=== PATIENT | female | born 1985 | race Caucasian/White ===

== ENCOUNTER 2019-03-02 18:40 | Outpatient (CLI) | payer OTHER ==
[~2019-03-02] VITALS: Ht 166.4 cm; Wt 74.3 kg
[2019-03-02 19:05] VITALS: Ht 166.4 cm; Wt 74.3 kg
[2019-03-02 19:06] VITALS: BP 116/70; PULSE 83; RESP 18
[2019-03-02] MEDS ORDERED: PNV11TAB PO (19:08)
[2019-03-02] MEDS ORDERED: LACTATED RINGER'S 1,000 ML IV SCH (21:00)
[2019-03-02] MEDS ORDERED: LACTATED RINGER'S 1,000 ML IV ONE (21:00)
--- NOTE | 2019-03-03 00:44 | TRIAGE ---
OB Triage Datetime Report Generated by CPN: 03/03/2019 00:44 Datetime: 03/02/2019 19:40 Stage of : OB Triage Datetime: 03/02/2019 19:35 Stage of : OB Triage Labor Evaluation Frequency: 0 Monitor Mode: External Pattern: Normal: <= 5 Contractions in 10 Minutes Resting Tone Rosine: Relaxed Heart Rate FHR Baseline Rate: 150 Monitor Mode: External US FHR Baseline Changes: No Baseline Change Variability: Moderate 6-25 bpm Accelerations: 15X15 Decelerations: None Category: Category I Pain Assessment Pain Scale: 2 Pain Presence: Constant Pain Type: Sharp Pain Location: Abdomen Pain Assessment Comments: LLQ pain Datetime: 03/02/2019 19:19 Vaginal Exam Membrane Status: Intact Datetime: 03/02/2019 18:59 Maternal Assessment Level of Consciousness: Fully Conscious DTR's/Clonus: DTRs 2+; No Clonus Headache: Denies Blurred Vision: No Respiratory Effort: Unlabored; Regular Rhythm; Equal Expansion Breath Sounds, Left: Clear and Equal Breath Sounds, Right: Clear and Equal Nausea/Vomiting: Hx of Nausea/Vomiting RUQ Epigastric Pain: Denies Facial Edema: None Temperature Route: Axillary Fall Risk Assessment History of Falling: (0) No Secondary Diagnosis: (0) No Ambulatory Aid: (0) Bedrest/Nurse Assist IV Therapy: (0) No Gait: (0) Normal/Bedrest/Immobile Mental Status: (0) Oriented to Own Ability Fall Score: 0 Fall Risk Score Definition: No Risk: No action required Labor Evaluation Frequency: 0 Monitor Mode: External Pattern: Normal: <= 5 Contractions in 10 Minutes Resting Tone Rosine: Relaxed Heart Rate FHR Baseline Rate: 155 Monitor Mode: External US Variability: Moderate 6-25 bpm Accelerations: None Decelerations: None Pain Assessment Pain Scale: 0 Pain Presence: None/Denies Pain Type: N/A Pain Goal: 3 Pain Relief Measures: Comfort Measures Datetime: 03/02/2019 18:58 EGA: 26.2 Datetime: 03/02/2019 18:56 Time of Arrival: 03/02/2019 18:30 Arrived By: Ambulatory Arrived From: Home Chief Complaint: C/O NAUSEA, VOMITING AND DIARRHEA X 3 DAYS. ABDOMINAL CRAMPS, DENIES BLEEDING OR LEAKING Movement: Present Contractions: Denies/Absent Rupture of Membranes: Denies Vaginal Bleeding: None Vaginal Discharge: Denies Recent Sexual Intercouse: Denies Abdominal Trauma: Not Applicable Patient Complaints: Cramping Time Provider Notified: 03/02/2019 19:40 Provider Notified: Dr Christy Initial Plan: MONITOR, UA,CBC,CMP,CVL,BPP,EFW
--- NOTE | 2019-03-03 08:46 | PN ---
Triage Information Date/Time 03/03/2019 Reason for visit: Nausea and vomiting Weeks of Gestation 26 weeks and 2 days /Para 1 para 0 Diabetes: none Hypertention: none Additional information 33-year-old G1, P0 with IUP at 26 weeks and 2 days presented with complaint of nausea and vomiting and left-sided lower abdominal pain. Reports diarrhea as well. Denies any sick contact. Denies any fever or chills. Patient reports nausea 15 minutes after eating with diarrhea. Reports had these symptoms in the past as well. She denies any leaking of fluid, vaginal bleeding or decreased movement Objective Vital Signs Date Temp Pulse Resp B/P (MAP) Pulse Ox O2 O2 Flow FiO2 Time Delivery Rate 03/02/19 97.8 83 18 116/70 19:06 (85) Intake and Output 03/02/19 03/02/19 03/03/19 1515:00 23:00 07:00 IntakeIntake Total 1000 ml BalanceBalance 1000 ml Heart Rate: 130's Contractions: < 5 Minutes Apart Exam General appearance: Alert and oriented x4 does not appear to be in any acute distress Abdomen: Soft, gravid, fundal height consider gestational age No rebound tenderness, no guarding, no rigidity Ultrasound: Cervical length: 3.8 cm, estimated weight 51 percentile VS - Last 72 Hours, by Label Date Temp Pulse Resp B/P (MAP) Pulse Ox O2 O2 Flow FiO2 Time Delivery Rate 03/02/19 97.8 83 18 116/70 19:06 (85) Laboratory Tests Test 03/02/19 19:00 03/02/19 20:14 Urine Color ANNELIESE Urine Clarity CLOUDY A Urine pH 5.0 Urine Specific [place] 1.024 Urine Ketones NEGATIVE Urine Nitrite NEGATIVE Urine Bilirubin NEGATIVE Urine Urobilinogen 1+ H Urine Leukocyte Esterase TRACE A Urine Microscopic RBC 1 Urine Microscopic WBC 4 Urine Squamous Epithelial Cells MANY A Urine Bacteria FEW A Urine Mucus MODERATE Urine Hemoglobin NEGATIVE Urine Glucose 1+ H Urine Total Protein NEGATIVE White Blood Count 10.4 Red Blood Count 3.98 L Hemoglobin 12.3 Hematocrit 36.0 L Mean Corpuscular Volume 90.5 Mean Corpuscular Hemoglobin 30.9 Mean Corpuscular Hemoglobin Concent 34.2 Red Cell Distribution Width 12.2 Platelet Count 253 Mean Platelet Volume 9.9 Immature Granulocytes % 1.000 H Neutrophils % 73.1 Lymphocytes % 17.7 Monocytes % 6.7 Eosinophils % 1.1 Basophils % 0.4 Nucleated Red Blood Cells % 0.0 Immature Granulocytes # 0.100 H Neutrophils # 7.6 H Lymphocytes # 1.8 Monocytes # 0.7 Eosinophils # 0.1 Basophils # 0.0 Nucleated Red Blood Cells # 0.0 Sodium Level 135 Potassium Level 3.7 Chloride Level 107 Carbon Dioxide Level 21 Anion Gap 7 Blood Urea Nitrogen 6 L Creatinine 0.34 L Est Glomerular Filtrat Rate mL/min > 60 Glucose Level 79 Calcium Level 9.5 Total Bilirubin 0.2 Direct Bilirubin 0.00 Indirect Bilirubin 0.2 Aspartate Amino Transf (AST/SGOT) 22 Alanine Aminotransferase (ALT/SGPT) 22 Alkaline Phosphatase 75 Total Protein 6.5 Albumin 3.6 Globulin 2.90 Albumin/Globulin Ratio 1.24 Results/Medications Result Diagram: 03/02/19201303/02/192013 Results 24 hrs Laboratory Tests Test 03/02/19 19:00 03/02/19 20:14 Urine Color ANNELIESE Urine Clarity CLOUDY A Urine pH 5.0 Urine Specific [place] 1.024 Urine Ketones NEGATIVE Urine Nitrite NEGATIVE Urine Bilirubin NEGATIVE Urine Urobilinogen 1+ H Urine Leukocyte Esterase TRACE A Urine Microscopic RBC 1 Urine Microscopic WBC 4 Urine Squamous Epithelial Cells MANY A Urine Bacteria FEW A Urine Mucus MODERATE Urine Hemoglobin NEGATIVE Urine Glucose 1+ H Urine Total Protein NEGATIVE White Blood Count 10.4 Red Blood Count 3.98 L Hemoglobin 12.3 Hematocrit 36.0 L Mean Corpuscular Volume 90.5 Mean Corpuscular Hemoglobin 30.9 Mean Corpuscular Hemoglobin Concent 34.2 Red Cell Distribution Width 12.2 Platelet Count 253 Mean Platelet Volume 9.9 Immature Granulocytes % 1.000 H Neutrophils % 73.1 Lymphocytes % 17.7 Monocytes % 6.7 Eosinophils % 1.1 Basophils % 0.4 Nucleated Red Blood Cells % 0.0 Immature Granulocytes # 0.100 H Neutrophils # 7.6 H Lymphocytes # 1.8 Monocytes # 0.7 Eosinophils # 0.1 Basophils # 0.0 Nucleated Red Blood Cells # 0.0 Sodium Level 135 Potassium Level 3.7 Chloride Level 107 Carbon Dioxide Level 21 Anion Gap 7 Blood Urea Nitrogen 6 L Creatinine 0.34 L Est Glomerular Filtrat Rate mL/min > 60 Glucose Level 79 Calcium Level 9.5 Total Bilirubin 0.2 Direct Bilirubin 0.00 Indirect Bilirubin 0.2 Aspartate Amino Transf (AST/SGOT) 22 Alanine Aminotransferase (ALT/SGPT) 22 Alkaline Phosphatase 75 Total Protein 6.5 Albumin 3.6 Globulin 2.90 Albumin/Globulin Ratio 1.24 Imaging Results PROCEDURE: US OB biophysical profile. Ultrasound cervix CLINICAL INDICATION: decreased movements, labor TECHNIQUE: Multiple sonographic images of the pelvis were obtained. In addition, transvaginal images of the cervix were obtained. The images were reviewed on a PACS workstation. COMPARISON: No prior studies are available for comparison. FINDINGS: The cervix measures 3.8 cm in length. Gestation: Single live intrauterine gestation. Cardiac activity: 156 beats per minute. Presentation: Vertex. Placenta: Location: Posterior Appearance: No previa or abruption. MVP = 5.0 cm. Biophysical profile: movement 2/2 tone 2/2. breathing 2/2 ANDREWS 2/2 Total 06/09 RPTAT: AA . IMPRESSION: Normal biophysical profile. Cervix measures 3.8 cm in length. PROCEDURE: US OB. CLINICAL INDICATION: Size and dates , labor TECHNIQUE: Multiple sonographic images of the pelvis and gravid uterus were obtained. The images were reviewed on a PACS workstation. COMPARISON: No prior studies are available for comparison. FINDINGS: Gestation: Single live intrauterine gestation. Cardiac activity: 156 beats per minute. Presentation: Vertex. Placenta: Location: Posterior Appearance: No previa or abruption. Measurements: BPD = 6.6 cm, 26 weeks and 4 days HC = 24.2 cm, 26 weeks and 2 days AC = 22.3 cm, 26 weeks and 5 days FL = 4.9 cm, 26 weeks and 3 days Gestational Age: AUA estimated gestational age: 26 weeks 4 days LMP estimated gestational age: 26 weeks 2 days AUA estimated date of delivery: 06/04/19 The EFW = 955 g, 51%ile based on LMP age. RPTAT: AA Disposition: Discharge Assessment/Plan 26 weeks and 2 days No evidence of labor or PPROM Left lower abdominal pain. Likely GI related Patient symptoms improved after hydration Stable for discharge. Strict labor precautions kick count and follow-up with primary care office and primary OB within 48 hours after discharge from the hospital discussed with patient Symptoms likely GI related, cannot rule out IBS Patient verbalized understanding. All questions were answered to patient with satisfaction and patient agreed to comply with instructions. NEHAL RENDON MD March 03, 2019 08:46
== END 2019-03-02 22:54 | disposition home or self-care (01) ==
LOC: OBT 18:40 → L-D 18:41 → OBT 22:54
PROVIDERS: ATTEND Obstetrics & Gynecology
DX: O21.0 Mild hyperemesis gravidarum (principal); Z3A.26 26 weeks gestation of pregnancy
CPT/HCPCS: 36415; 76815; 76817; 76818; 80053; 81001; 85025; 96360; J7120; Z7500; G0463

== ENCOUNTER 2019-03-17 19:25 | Outpatient (CLI) | payer OTHER ==
[~2019-03-17] VITALS: Ht 165.1 cm; Wt 75.5 kg
[~2019-03-17 19:25] MED LIST: PNV11TAB PO
[2019-03-17] MEDS ORDERED: ACETAMINOPHEN 500 MG TAB PO STA (20:22)
[2019-03-17 20:36] VITALS: BP 118/58; PULSE 76; RESP 17
--- NOTE | 2019-03-17 23:29 | PN ---
Triage Information Date/Time 03/17/19 Reason for visit: Abd/pelvic pain (left side pelvic pain since tue after she cleaned the house) Weeks of Gestation 28w3d /Para Diabetes: none Hypertention: none Objective Vital Signs Date Temp Pulse Resp B/P (MAP) Pulse Ox O2 O2 Flow FiO2 Time Delivery Rate 03/17/19 97.7 76 17 118/58 Room Air 20:36 (78) Heart Rate: 130's Heart Rate Comments CAT I Contractions: None Results/Medications Results 24 hrs Laboratory Tests Test 03/17/19 19:30 Urine Color YELLOW Urine Clarity SLIGHTLY CLOUDY A Urine pH 6.0 Urine Specific [place] 1.014 Urine Ketones NEGATIVE Urine Nitrite NEGATIVE Urine Bilirubin NEGATIVE Urine Urobilinogen NEGATIVE Urine Leukocyte Esterase TRACE A Urine Microscopic RBC 1 Urine Microscopic WBC 5 Urine Squamous Epithelial Cells FEW Urine Hemoglobin NEGATIVE Urine Glucose NEGATIVE Urine Total Protein NEGATIVE Medications tylenol 1000mg Imaging Results BPP 8/8 ANDREWS 13.5 CVL 4.1 Disposition: Discharge Assessment/Plan IUP 28w3d ligment pain Plan discharge home with instructions not to lift heavy object or sudden movement RTH prn TIFFANY CAMPA MD March 17, 2019 23:29
--- NOTE | 2019-03-18 01:57 | TRIAGE ---
OB Triage Datetime Report Generated by CPN: 03/18/2019 01:57 Datetime: 03/17/2019 19:46 Time of Arrival: 03/17/2019 19:20 EGA: 28.3 Arrived By: Ambulatory Arrived From: Home Chief Complaint: c/o constant lower left abd pain since lifting and cleaning 2 days ago Movement: Present Contractions: Denies/Absent Rupture of Membranes: Denies Vaginal Bleeding: None Vaginal Discharge: Denies Recent Sexual Intercouse: Denies Abdominal Trauma: Not Applicable Patient Complaints: Other Time Provider Notified: 03/17/2019 20:25 Provider Notified: Dr Moreira Initial Plan: EFM,UA, TYLENOL PO, CVL, BPP Datetime: 03/02/2019 22:37 Stage of : OB Triage Labor Evaluation Monitor Mode: External Quality: Mild Pattern: Normal: <= 5 Contractions in 10 Minutes Resting Tone [place]: Relaxed Heart Rate FHR Baseline Rate: 150 Monitor Mode: External US FHR Baseline Changes: No Baseline Change Variability: Moderate 6-25 bpm Accelerations: 15X15 Decelerations: None Category: Category I Datetime: 03/02/2019 21:27 Stage of : OB Triage Heart Rate FHR Baseline Rate: 150 FHR Baseline Changes: No Baseline Change Variability: Moderate 6-25 bpm Accelerations: 15X15 Decelerations: None Datetime: 03/02/2019 20:36 Stage of : OB Triage Labor Evaluation Monitor Mode: External Quality: Mild Pattern: Normal: <= 5 Contractions in 10 Minutes Resting Tone [place]: Relaxed Heart Rate FHR Baseline Rate: 150 Monitor Mode: External US FHR Baseline Changes: No Baseline Change Variability: Moderate 6-25 bpm Accelerations: 15X15 Datetime: 03/02/2019 18:59 Fall Risk Assessment Fall Score: 0 Fall Risk Score Definition: No Risk: No action required Datetime: 03/02/2019 18:58 EGA: 26.2
== END 2019-03-17 23:18 | disposition home or self-care (01) ==
LOC: L-D 19:25 → OBT 19:25
PROVIDERS: ATTEND Obstetrics & Gynecology
DX: O26.893 Other specified pregnancy related conditions, third trimester (principal); R10.2 Pelvic and perineal pain; Z3A.28 28 weeks gestation of pregnancy
CPT/HCPCS: 76817; 76818; 81001; 87086; Z7610; G0463

== ENCOUNTER 2019-05-09 18:25 | Inpatient (IN) | payer OTHER ==
[2019-05-09 18:48] VITALS: BP 131/80; PULSE 90
[2019-05-09] MEDS ORDERED: ACETAMINOPHEN 325 MG TAB PO PRN (20:30)
[2019-05-09] MEDS ORDERED: LACTATED RINGER'S 1,000 ML IV ONE (20:30)
[2019-05-09] MEDS: LACTATED RINGER'S 1,000 ML IV SCH (22:03)
--- NOTE | 2019-05-10 00:21 | PREOPHP ---
DATE OF ADMISSION: 05/09/2019 HISTORY OF PRESENT ILLNESS: Ms. Brandy Miranda is a 33-year-old 1, para 0, EDC 06/06/2019 in trauterine at 36 weeks' gestational age, was sent from the ambulance today after a blunt tr auma to her abdomen. The patient [place] by another patient coordinator in the abdomen. She currently reports of abdominal pain. She denies any nausea, vomiting, shortness of breath, visual change, or epigastric pain. Her vital signs are currently stable. Blood pressure is 131/80, pulse is 90, respirations 18, temperature 97.9. MEDICAL HISTORY: Anxiety. MEDICATIONS: vitamins. PAST SURGICAL HISTORY: None. OBSTETRIC HISTORY: Primigravida. GYNECOLOGIC HISTORY: 14, regular 3 to 4 days. Denies any sexually transmitted infections. Sexually active with 1 partner. SOCIAL HISTORY: Denies any smoking, drugs, or alcohol. FAMILY HISTORY: None. REVIEW OF SYSTEMS: All within normal except history of present illness. PHYSICAL EXAMINATION: HEENT: Within normal. LUNGS: CTA bilateral. CARDIOVASCULAR: S1, S2, regular rhythm. ABDOMEN: Gravid. Mild left abdominal tenderness, no CVA bilateral. EXTREMITIES: Negative edema. No calf tenderness. PELVIC: Vaginal exam, no active bleeding. Digital exam deferred. heart tracing category 1. [place] positive irritability. IMPRESSION: Intrauterine at 36 weeks' gestational age, status post blunt trauma to the abd omen, stable. PLAN: Admit patient for serial H and H, ultrasound for rule out placenta abruption. Continue close heart tracing monitoring. Dictated By: TREV PEGUERO/CATHERINE Conf#: [id number] DID#: [id number]
[2019-05-10] MEDS: LACTATED RINGER'S 1,000 ML IV SCH ×2 (05:59→13:53)
[2019-05-10] MEDS ORDERED: DOCUSATE SODIUM 100 MG CAP PO SCH (09:00)
[2019-05-10] MEDS ORDERED: PRENATAL VITAMIN PO SCH (09:00)
--- NOTE | 2019-05-10 19:14 | PD.PPDC ---
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
--- NOTE | 2019-05-11 01:42 | DS ---
DATE OF ADMISSION: 05/09/2019 DATE OF DISCHARGE: 05/10/2019 PRIMARY DIAGNOSIS: Intrauterine at 36 weeks' gestational age, blunt trauma, undelivered. PROCEDURE: None. CONDITION ON DISCHARGE: Stable. ACTIVITY: As tolerated. DIET: Regular. MEDICATIONS ON DISCHARGE: Continue vitamins. DISCHARGE SUMMARY: Ms. Brandy Miranda was admitted for blunt trauma in the abdomen yesterday. Curre ntly her vital signs are stable. She denies any nausea, vomiting, shortness of breath, visual change s. She denies any contractions, vaginal bleeding, or discharge. Her abdominal pain has resolved and she will be discharged home today with strict kick counts and labor precautions. Dictated By: TREV PEGUERO/CATHERINE Conf#: [id number] DID#: [id number]
== END 2019-05-10 19:40 | disposition home or self-care (01) | DRG 914 ==
LOC: OBT 18:25 → L-D 18:27 → OBT 20:20
PROVIDERS: ADMIT Obstetrics & Gynecology; ATTEND Obstetrics & Gynecology
DX: S39.81XA Other specified injuries of abdomen, initial encounter (principal); Y04.2XXA Assault by strike against or bumped into by another person, initial encounter; Y92.512 Supermarket, store or market as the place of occurrence of the external cause; Z3A.36 36 weeks gestation of pregnancy
CPT/HCPCS: 76818; 80307; 85014; 85018; 85025; 86900; 86901; G0463; J7120

== ENCOUNTER 2019-05-28 21:05 | Outpatient (CLI) | payer OTHER ==
[~2019-05-28] VITALS: Ht 166.4 cm; Wt 83.8 kg
[2019-05-28 21:34] VITALS: BP 108/69; PULSE 88; RESP 15
--- NOTE | 2019-05-30 10:47 | PN ---
Triage Information Date/Time late entry note for 05/28/2019 Reason for visit: Vag spotting / bleeding Weeks of Gestation at 38 + wks ga PASCUAL 06/06/2019 presents with pelvic cramping and vaginal spotting patient reports positive movement, denies uterine contractions, denies leaking fluid /Para Diabetes: none Hypertention: none Objective Vital Signs Date Temp Pulse Resp B/P (MAP) Pulse Ox O2 O2 Flow FiO2 Time Delivery Rate 05/28/19 98.1 88 15 108/69 Room Air 21:34 (82) Heart Rate: 140's Heart Rate Comments FHR tracing cat 1 Contractions: None Exam cervix closed per nurse Results/Medications Results 24 hrs Urine Results - 72 Hrs Test 05/28/19 21:48 Urine Color YELLOW (YELLOW) Urine Clarity SLIGHTLY CLOUDY (CLEAR) Urine pH 6.0 (5.0-9.0) Urine Specific [place] 1.018 (1.003-1.030) Urine Ketones NEGATIVE mg/dL (NEGATIVE) Urine Nitrite NEGATIVE mg/dL (NEGATIVE) Urine Bilirubin NEGATIVE mg/dL (NEGATIVE) Urine Urobilinogen NEGATIVE mg/dL (NEGATIVE) Urine Leukocyte Esterase NEGATIVE Luc/ul Urine Microscopic RBC 2 /HPF (0-5) Urine Microscopic WBC 6 /HPF (0-5) H Urine Squamous Epithelial Cells FEW /HPF (FEW) Urine Hemoglobin 2+ mg/dL (NEGATIVE) H Urine Glucose 1+ mg/dL (NEGATIVE) H Urine Total Protein 1+ mg/dl (NEGATIVE) H Imaging Results PROCEDURE: Biophysical profile. CLINICAL INDICATION: Pelvic pain. TECHNIQUE: Multiple sonographic images of the pelvis were obtained with transabdominal technique. COMPARISON: 05/09/2019. FINDINGS: There is a single living intrauterine gestation with the fetus in a oblique position with the head down and to the maternal right. The placenta is fundal in location, grade II. There is no evidence of placenta previa or abruption. heart tones of 168 beats per minute are identified. There is low normal amniotic fluid volume with an ANDREWS of 8.5 cm with the maximum vertical pocket measuring 3.1 cm. breathing movements = 2 Gross body movements = 2 tone = 2 Qualitative AFV = 2 IMPRESSION: Biophysical profile 8 out of 8. Low normal ANDREWS of 8.5 cm with the maximum vertical pocket measuring 3.1 cm. .Randal Ray MD, Date Time Electronically viewed and signed by .Randal Ray MD, on 05/28/2019 22:54 .T/ CC: SANDOVAL RED MD [phone] Disposition: Discharge Assessment/Plan kick count instructions were given labor precautions were given Patient to f/u with obgyn clinic in 1-2 days SANDOVAL RED MD May 30, 2019 10:47
== END 2019-05-28 23:10 | disposition home or self-care (01) ==
LOC: OBT 21:05 → L-D 21:05 → OBT 23:10
PROVIDERS: ATTEND Obstetrics & Gynecology
DX: O46.8X3 Other antepartum hemorrhage, third trimester (principal); Z3A.38 38 weeks gestation of pregnancy
CPT/HCPCS: 76818; 81001; Z7500; G0463

== ENCOUNTER 2019-05-30 12:42 | Inpatient (IN) | payer OTHER ==
[~2019-05-30] VITALS: Ht 165.1 cm; Wt 83.0 kg
[2019-05-30 12:55] VITALS: BP 113/67; PULSE 86; RESP 18; Ht 165.1 cm; Wt 83.0 kg
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
[2019-05-30] MEDS ORDERED: LIDOCAINE 1% (MPF) 30 ML INJ INJ PRN (15:30)
[2019-05-30] MEDS ORDERED: OXYTOCIN 30 UNITS/LR 500 ML IV SCH ×2 (15:30)
[2019-05-30] MEDS ORDERED: METHYLERGONOVINE 0.2 MG INJ IM PRN (15:30)
[2019-05-30] MEDS ORDERED: MISOPROSTOL 200 MCG TAB PR PRN (15:30)
[2019-05-30] MEDS ORDERED: IBUPROFEN 600 MG TAB PO PRN (15:30)
[2019-05-30] MEDS ORDERED: BUTORPHANOL 2 MG INJ IV PRN (15:30)
[2019-05-30] MEDS ORDERED: OXYTOCIN 30 UNITS/LR 500 ML IV PRN (15:30)
[2019-05-30] MEDS ORDERED: CARBOPROST 250 MCG INJ IM PRN (15:30)
[2019-05-30] MEDS ORDERED: MINERAL OIL LIGHT 10 ML VIAL TOP ONE (18:00)
[2019-05-30] MEDS: LACTATED RINGER'S 1,000 ML IV SCH ×3 (18:42→22:22)
[2019-05-30] MEDS ORDERED: ACETAMINOPHEN 325 MG TAB PO ONE (22:00)
[2019-05-31] MEDS: LACTATED RINGER'S 1,000 ML IV SCH ×3 (01:21→05:27)
[2019-05-31] MEDS ORDERED: FENTAnyl 2MCG/ML-ROPIV 0.2% 100 ML ONE (03:34)
[2019-05-31] MEDS ORDERED: DIPHENHYDRAMINE 50 MG INJ IV PRN (04:00)
[2019-05-31] MEDS ORDERED: ONDANSETRON 4 MG INJ IV PRN (04:00)
[2019-05-31] MEDS ORDERED: NALOXONE (0.4 MG/ML) INJ IV PRN (04:00)
--- NOTE | 2019-05-31 04:00 | PREAC ---
Date/Time of Note Date/Time of Note DATE: 05/31/19 TIME: 03:59 Anesthesia Eval and Record Evaluation Time Pre-Procedure Interview DATE: 05/31/19 TIME: 03:59 Age 33 Sex female NPO: 8 hrs Preoperative diagnosis IUP Planned procedure L&D Epidural Past Medical History Past Medical History: Includes GI: Obesity : : Surgery & Anesthesia Issues No known issue Meds Anticoagulation: No Beta Ian within 24 hr: No Reason Beta Ian not given: Pt. not on B-Ian Reported Medications [id number] ( 19) 1 Each Tablet, 1 TAB PO DAILY, TAB 03/02/19 Current Medications Lactated Ringer's 1,000 ml @ 125 mls/hr Q8H IV Last administered on 05/31/19at 03:57; Admin Dose 125 MLS/HR; Start 05/30/19 at 15:13 Butorphanol Tartrate (Stadol) 2 mg Q2H PRN IV .PAIN SCALE 6-10; Start 05/30/19 at 15:30 Lidocaine (Xylocaine 1% (Mpf)) 30 ml ONCE PRN INJ .EPISIOTOMY; Start 05/30/19 at 15:30 Oxytocin/Lactated Ringer's 500 ml @ 500 mls/hr ONCE POST IV ; Start 05/30/19 at 15:30 Oxytocin/Lactated Ringer's 500 ml @ 125 mls/hr POST IV ; Start 05/30/19 at 15:30 Ibuprofen (Motrin) 600 mg ONCE PRN PO .PAIN 1-5; Start 05/30/19 at 15:30 Oxytocin/Lactated Ringer's 500 ml @ 0 mls/hr ONCE PRN IV .VAGINAL BLEEDING; Start 05/30/19 at 15:30 Methylergonovine Maleate (Methergine) 0.2 mg ONCE PRN IM .VAGINAL BLEEDING; Start 05/30/19 at 15:30 Carboprost Tromethamine (Hemabate) 250 mcg ONCE PRN IM .VAGINAL BLEEDING; Start 05/30/19 at 15:30 Misoprostol (Cytotec) 1,000 mcg ONCE PRN TX .VAGINAL BLEEDING; Start 05/30/19 at 15:30 Meds reviewed: Yes Allergies Uncoded Allergies: RAW SHRIMP (Allergy, Severe, 05/09/19) Allergies Reviewed: Yes Labs/Studies Labs Reviewed: Reviewed by anesthesiologist Result Diagram: 05/30/19 1400 Laboratory Tests 05/30/19 14:00 Blood Bank Test 05/30/19 14:00 Antibody Screen NEGATIVE Blood Type B POSITIVE Rh Immune Globulin Candidate NO test: Positive Studies: ECG Pre-procedure Exam Last vitals Vital Signs Date Temp Pulse Resp B/P (MAP) Pulse Ox O2 O2 Flow FiO2 Time Delivery Rate 05/30/19 98.0 86 18 113/67 Room Air 12:55 (82) Airway: Adequate mouth opening, Adequate thyromental dist Mallampati: Mallampati II Teeth: Normal Lung: Normal Heart: Normal ASA Physical Status ASA physical status: 2 Emergency: None Planned Anesthetic Neuraxial: Epidural Planned Pain Management Epidural, Parenteral pain med Pre-operative Attestations Prior to commencing anesthesia and surgery, the patient was re-evaluated, there was verification of: *The patient's identity *The results of appropriate recent lab work and preoperative vital signs *The above evaluation not changing prior to induction *Anesthetic plan, risk benefits, alternative and complications discussed with patient/family; questions answered; patient/family understands, accepts and wishes to proceed. JAELYN ARVIZU MD May 31, 2019 04:00
[2019-05-31] MEDS: FENTAnyl 2MCG/ML-ROPIV 0.2% 100 ML BAG EPI SCH ×2 (05:27→08:30)
--- NOTE | 2019-05-31 10:02 | HP ---
Date/Time of Note Date/Time of Note DATE: 05/31/19 TIME: 10:00 OB - History Hx of Present Free Text/Dictation 39+wks GA : 1 Para: 0 Care: Good Care Ultrasounds: Normal mid trimester US Obstetrical Complications: None Past Family/Social History * Past Medical, Surgical, Family and Obstetric Histories reviewed from chart. OB Admission Exam Vital Signs Vital Signs Vital Signs Date Temp Pulse Resp B/P (MAP) Pulse Ox O2 O2 Flow FiO2 Time Delivery Rate 05/30/19 98.0 86 18 113/67 Room Air 12:55 (82) Physical Exam HEENT: WNL Abdomen: WNL Cervical Dilatation: 10cm Effacement: 100% Station: +2 Membranes: Ruptured Heart Rate: 140's Accelerations: Accelerations Present Decelerations: Variable Decelerations Varibility: Moderate Contractions on Admission: 6-10 Minutes Apart Last 72 hours Lab Results CBC & BMP 05/30/19 14:00 OB Assessment/Plan Reason for admission: observation Other Assessment: PMH Menta issues and Manic Bipolar Plan: Expectant Management Other plan: Anticipated ECHO MORENO M.D. May 31, 2019 10:02
--- NOTE | 2019-05-31 10:03 | LDN ---
Date/Time of Note Date/Time of Note DATE: 05/31/19 TIME: 10:02 Delivery Summary 39+ 1st degree vaginal laceration --->Repaired Placenta Delivered: Spontaneously Meconium: none Episiotomy: No Anesthesia type: Epidural Estimated blood loss: 200 Sponge & Needle done & correct: Yes All needle counts correct: Yes Any foreign bodies felt in the: No Infant Delivery Information Sex Sex: male Apgars 1 Minute: 9 5 Minute: 9 Suctioning Nose & mouth suctioned at axel: Yes Delee suction performed: Yes Umbilical Cord Umbilical cord with: 3 Vessels Cord presentations: no nuchal cord Cord Blood was obtained: Yes ECHO KAY M.D. May 31, 2019 10:03
[2019-05-31 14:00] VITALS: BP 131/68; PULSE 100; RESP 18
[2019-05-31] MEDS ORDERED: OXYTOCIN 30 UNITS/LR 500 ML IV SCH (14:09)
[2019-05-31] MEDS ORDERED: LANOLIN HPA 1 PKT TOP PRN (14:30)
[2019-05-31] MEDS ORDERED: METHYLERGONOVINE 0.2 MG INJ IM PRN (14:30)
[2019-05-31] MEDS ORDERED: CARBOPROST 250 MCG INJ IM PRN (14:30)
[2019-05-31] MEDS ORDERED: OXYTOCIN 30 UNITS/LR 500 ML IV PRN (14:30)
[2019-05-31] MEDS ORDERED: MISOPROSTOL 200 MCG TAB PR PRN (14:30)
[2019-05-31] MEDS ORDERED: OXYCODONE/ASPIRIN (4.88/325) TAB PO PRN (14:30)
[2019-05-31] MEDS ORDERED: BENZOCAINE 20% 56 ML SPRAY TOP PRN (14:30)
[2019-05-31] MEDS ORDERED: ZOLPIDEM 5 MG TAB PO PRN (14:30)
[2019-05-31] MEDS ORDERED: NACL 0.9% 3 ML SYG IV SCH (14:30)
[2019-05-31] MEDS ORDERED: WITCH HAZEL/GLYCERIN PAD PR PRN (14:30)
[2019-05-31] MEDS ORDERED: SENNA/DOCUSATE NA (8.6MG/50MG) TAB PO PRN (14:30)
[2019-05-31 15:00] VITALS: BP 119/73; PULSE 108; RESP 18
[2019-05-31] MEDS: IBUPROFEN 600 MG TAB PO SCH (18:20)
[2019-05-31 20:00] VITALS: BP 108/59; PULSE 104; RESP 19
[2019-06-01] MEDS: SENNA/DOCUSATE NA (8.6MG/50MG) TAB PO SCH ×3 (00:05→23:36)
[2019-06-01] MEDS: IBUPROFEN 600 MG TAB PO SCH ×5 (00:05→23:36)
[2019-06-01 04:00] VITALS: BP 110/69; PULSE 88; RESP 18
--- NOTE | 2019-06-01 07:20 | DS ---
Date/Time of Note Date/Time of Note DATE: 06/01/19 TIME: 07:19 Obstetrical Discharge Record Final Diagnosis Final Diagnosis: Term delivered Vaginal Delivery Obstetrical Delivery: Spontaneous, Laceration, Repaired Condition on Discharge Physical Assessment Last Vitals: stable afebrile Voiding: Yes Bowel Movement: Yes Breast: Soft, non-tender, Filling Fundus: Firm Abdomen and Incision: soft nt Calf Tenderness: No Patient Condition: Fair TREV MCKEON MD Jun 01, 2019 07:20
--- NOTE | 2019-06-01 07:21 | PD.PPDC ---
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
--- NOTE | 2019-06-01 07:32 | PREOPHP ---
DATE OF ADMISSION: 05/30/2019 HISTORY OF PRESENT ILLNESS: Ms. Brandy Miranda is a 33-year-old 1, para 0, intrauterine preg emi at term, presented to triage in labor. She reports of contractions since early this morning. She denies any vaginal bleeding or discharge. Her care took place at the [facility]. MEDICAL HISTORY: Depression. MEDICATIONS: vitamins. PAST SURGICAL HISTORY: None. OBSTETRIC HISTORY: Prima . GYNECOLOGIC HISTORY: [age], regular 3 to 4 days. Denies any sexually transmitted disease. Sexuall y active with 1 partner. SOCIAL HISTORY: History of marijuana use in early ; however, denies using any drugs or alco hol. FAMILY HISTORY: None. REVIEW OF SYSTEMS: All within normal except history of present illness. PHYSICAL EXAMINATION: HEENT: Within normal. LUNGS: CTA bilateral. CARDIOVASCULAR: S1, S2, regular rhythm. ABDOMEN: Gravid, nontender. Negative CVA bilateral. EXTREMITIES: Negative edema. No calf tenderness. PELVIC: Vaginal exam 3, 80, -2. heart tracing category 1. Tocometer regular contractions. ASSESSMENT: Intrauterine at term in labor. PLAN: Admit patient and anticipate vaginal delivery. Dictated By: TREV PEGUERO/CATHERINE Conf#: [id number] DID#: [id number]
[2019-06-01 08:00] VITALS: BP 106/58; PULSE 81; RESP 16
--- NOTE | 2019-06-01 08:27 | PAC ---
Date/Time of Note Date/Time of Note DATE: 06/01/19 TIME: 08:27 Post-Anesthesia Notes Post-Anesthesia Note Last documented vital signs Vital Signs Date Temp Pulse Resp B/P (MAP) Pulse Ox O2 O2 Flow FiO2 Time Delivery Rate 06/01/19 98.0 88 18 110/69 Room Air 04:00 (83) Activity: WNL Respiratory function: WNL Cardiovascular function: WNL Mental status: Baseline Pain reasonably controlled: Yes Hydration appropriate: Yes Nausea/Vomiting absent: Yes Comments BP:122/56,P:88, Spo2:100%, T:98.6 JAELYN ARVIZU MD Jun 01, 2019 08:27
[2019-06-01 15:45] VITALS: BP 105/65; PULSE 86; RESP 16
[2019-06-01 20:30] VITALS: BP 113/66; PULSE 94; RESP 18
[2019-06-02 04:15] VITALS: BP 111/59; PULSE 84; RESP 19
[2019-06-02] MEDS: IBUPROFEN 600 MG TAB PO SCH ×2 (05:33→12:27)
[2019-06-02 08:00] VITALS: BP 104/80; PULSE 80; RESP 18
[2019-06-02] MEDS ORDERED: DIPHTH/TET/ACEL PERTUSS (ADULT) 0.5 ML VIAL IM* ONE (09:00)
[2019-06-02] MEDS: SENNA/DOCUSATE NA (8.6MG/50MG) TAB PO SCH (09:14)
== END 2019-06-02 14:23 | disposition home or self-care (01) | DRG 807 ==
LOC: OBT 12:42 → L-D 12:43 → OBT 13:02 → L-D 13:18 → PP1 05-31 13:51
PROVIDERS: ADMIT Obstetrics & Gynecology; ATTEND Obstetrics & Gynecology
PROC: 10E0XZZ Delivery of Products of Conception, External Approach (ICD-10-PCS; principal; 2019-05-31)
PROC: 0HQ9XZZ Repair Perineum Skin, External Approach (ICD-10-PCS; 2019-05-31)
DX: O99.214 Obesity complicating childbirth (principal); Z37.0 Single live birth; E66.9 Obesity, unspecified; O99.324 Drug use complicating childbirth; O70.0 First degree perineal laceration during delivery; F12.90 Cannabis use, unspecified, uncomplicated; Z3A.39 39 weeks gestation of pregnancy
CPT/HCPCS: 62322; 76815; 80307; 85025; 85048; 85610; 85730; 86592; 86850; 86900; 86901; G0463; J0595; J2590; J3010; J7120